=== PATIENT | male | born 2000 | race Caucasian/White ===

== ENCOUNTER 2022-03-18 21:02 | Outpatient (CLI) | payer BC | END 2022-03-18 21:03 | disposition critical access hospital (66) | LOC: EMS 21:02 | DX: Z04.6 Encounter for general psychiatric examination, requested by authority (principal); R46.89 Other symptoms and signs involving appearance and behavior; R45.1 Restlessness and agitation; Z78.1 Physical restraint status | CPT/HCPCS: A0425; A0429 ==

== ENCOUNTER 2022-03-18 21:33 | Emergency (ER) | payer BC ==
[2022-03-18] MEDS ORDERED: risperiDONE 1 MG TABLET PO SCH (21:49)
--- NOTE | 2022-03-18 21:51 | ED Physician Documentation ---
PD HPI MHE - Stated complaint Stated Complaint: MHE - History obtained from History obtained from: Patient, EMS, Police - History of Present Illness Primary symptom: Manic - Additional information Additional information: Patient is a 21-year-old presenting for evaluation ofEntal health crisis. Patient reports a diagnosis of bipolar and over the last few days has been having increasingly bizarre behavior per the police. Patient has been yelling, crying, having difficulty and caring for themself (Not eating, not drinking). Please give the example that patient would grab a glass of water put a little salt in it drink it and then spit it out.Patient states that "I just do not feel right, I do not have any emotion at all". During encounter with EMS and police, patient had a periods of confusion, had difficulty in holding conversation,Yelling, getting in please officers face but not necessarily in an aggressive manner. Patient was transported in soft restraints. Patient was seen this morning at the [facility] walk-in clinic With the following recommendations made and diagnosis of bipolar 1, anxiety, cannabis use disorder. 1. Start risperidone 1 mg nightly to target mood #30. Side effects explained 2. Start hydroxyzine 25 mg every 8 hours as needed for anxiety #60. Side effects explained 3. Start therapy or counseling, see resources below 4. Resources provided for [facility] 5. Safety plan completed, reviewed, copy given PD PAST MEDICAL HISTORY - Allergies Allergies/Adverse Reactions: Allergies Allergy/AdvReac Type Severity Reaction Status Date / Time No Known Drug Allergies Allergy Verified 03/18/22 22:05 Results - Vitals Vitals: Vital Signs - 24 hr 03/18/22 03/18/22 03/19/22 21:55 22:01 01:30 Temperature 37.5 C 37 C Heart Rate 103 H 92 88 Respiratory 16 18 18 Rate Blood Pressure 130/88 H 111/78 117/76 O2 Saturation 99 98 99 03/19/22 08:25 Temperature Heart Rate 87 Respiratory 17 Rate Blood Pressure 118/75 O2 Saturation 99 Oxygen O2 Source Room air - EKG (time done) 2152 Rate: Rate (enter#) (103) Rhythm: Sinus tachycardia Intervals: No: Prolonged QT Ischemia: No: ST elevation c/w ischemia - Labs Labs: Laboratory Tests 03/18/22 03/18/22 03/18/22 21:48 21:48 22:00 WBC 7.8 RBC 5.09 Hgb 15.5 Hct 42.7 MCV 83.9 MCH 30.5 MCHC 36.3 H RDW 11.7 L Plt Count 266 MPV 10.1 Neut # (Auto) 5.5 Lymph # (Auto) 1.5 [place] # (Auto) 0.7 Eos # (Auto) 0.0 Baso # (Auto) 0.0 Absolute Nucleated RBC 0.00 Nucleated RBC % 0.0 Sodium Potassium Chloride Carbon Dioxide Anion Gap BUN Creatinine Estimated GFR (MDRD) Glucose Calcium Total Bilirubin AST ALT Alkaline Phosphatase Total Protein Albumin Globulin Albumin/Globulin Ratio Lipase TSH Urine Color DARK YELLOW Urine Clarity CLEAR Urine pH 6.0 Ur Specific [place] >=1.030 H Urine Protein 30 H Urine Glucose (UA) NEGATIVE Urine Ketones 40 H Urine Occult Blood NEGATIVE Urine Nitrite NEGATIVE Urine Bilirubin NEGATIVE Urine Urobilinogen 1 (NORMAL) Ur Leukocyte Esterase NEGATIVE Urine RBC 0-5 Urine WBC 0-3 Ur Squamous Epith Cells RARE Squamous Urine Bacteria None Seen Urine Casts 0-2 Course Granular Urine Mucus Marked Strands Ur Microscopic Review INDICATED Urine Culture Comments NOT INDICATED Salicylates Urine Opiates Screen NEGATIVE Ur Oxycodone Screen NEGATIVE Urine Methadone Screen NEGATIVE Ur Propoxyphene Screen NEGATIVE Acetaminophen Ur Barbiturates Screen NEGATIVE Ur Tricyclics Screen NEGATIVE Ur Phencyclidine Scrn NEGATIVE Ur Amphetamine Screen NEGATIVE U Methamphetamines Scrn NEGATIVE U Benzodiazepines Scrn POSITIVE H Urine Cocaine Screen NEGATIVE U Cannabinoids Screen POSITIVE H Ethyl Alcohol SARS-CoV-2 (PCR) 03/18/22 03/18/22 03/18/22 22:00 22:00 22:43 WBC RBC Hgb Hct MCV MCH MCHC RDW Plt Count MPV Neut # (Auto) Lymph # (Auto) [place] # (Auto) Eos # (Auto) Baso # (Auto) Absolute Nucleated RBC Nucleated RBC % Sodium 139 Potassium 3.2 L Chloride 96 L Carbon Dioxide 30 Anion Gap 13.0 BUN 14 Creatinine 1.0 Estimated GFR (MDRD) 93 Glucose 103 H Calcium 10.0 Total Bilirubin 1.5 H AST 20 ALT 19 Alkaline Phosphatase 50 Total Protein 7.9 Albumin 5.4 Globulin 2.5 Albumin/Globulin Ratio 2.2 Lipase 29 TSH 1.78 Urine Color Urine Clarity Urine pH Ur Specific [place] Urine Protein Urine Glucose (UA) Urine Ketones Urine Occult Blood Urine Nitrite Urine Bilirubin Urine Urobilinogen Ur Leukocyte Esterase Urine RBC Urine WBC Ur Squamous Epith Cells Urine Bacteria Urine Casts Urine Mucus Ur Microscopic Review Urine Culture Comments Salicylates < 6.0 Urine Opiates Screen Ur Oxycodone Screen Urine Methadone Screen Ur Propoxyphene Screen Acetaminophen < 10 L Ur Barbiturates Screen Ur Tricyclics Screen Ur Phencyclidine Scrn Ur Amphetamine Screen U Methamphetamines Scrn U Benzodiazepines Scrn Urine Cocaine Screen U Cannabinoids Screen Ethyl Alcohol < 5.0 SARS-CoV-2 (PCR) NOT DETECTED PD MEDICAL DECISION MAKING - ED course Complexity details: reviewed results, re-evaluated patient ED course: Patient presenting for mental health evaluation.Reports history of bipolar and appears to be having symptoms of a manic episode.Per the story from the billing and quality technician's office, he has not been eating or drinking much in the last week and his symptoms appear to be affecting his ability to care for himself.He is voluntary for placement.He has been medically cleared.He has been accepted to inpatient psychiatric facility. 2239 - Patient has been medically cleared. He has been cooperative. He is voluntary for placement at this time. 2304 - Patient Accepted to [facility] With transport to occur in the morning. Departure - Departure Disposition: [facility] Psych Hosp/Unit DC/Xfer Clinical Impression: Bipolar disorder Condition: Stable Discharge Date/Time: 03/19/22 08:34
[2022-03-18 21:56] LABS: GLUCOSE, URINE (UA) NEGATIVE (NEGATIVE); KETONES,URINE (UA) 40 mg/dL (NEGATIVE); LEUKOCYTE ESTERASE, URINE NEGATIVE (NEGATIVE); NITRITE,URINE NEGATIVE (NEGATIVE); OCCULT BLOOD,URINE NEGATIVE (NEGATIVE); PROTEIN,URINE 30 mg/dL (NEGATIVE); UROBILINOGEN,URINE 1 (NORMAL) E.U./dL (NORMAL)
[2022-03-18 22:01] LABS: BILIRUBIN,URINE NEGATIVE (NEGATIVE); CLARITY,URINE CLEAR (CLEAR); ICTOTEST,URINE NEGATIVE
[2022-03-18 22:05] LABS: MUDS CUTOFF CONCENTRATIONS CUTOFF CONC BELOW:
[2022-03-18 22:06] LABS: BACTERIA,URINE None Seen /HPF (None Seen); CASTS, URINE 0-2 Course Granular /LPF; MUCUS,URINE Marked Strands; RBC,URINE 0-5 /HPF (0-5); SQUAMOUS EPITHELIAL CELL,UR RARE Squamous (<= Few); WBC,URINE 0-3 /HPF (0-3)
[2022-03-18 22:10] LABS: BASOPHILS % (AUTO) 0.5 %; EOSINOPHILS % (AUTO) 0.3 %; HCT - HEMATOCRIT 42.7 % (42.0-52.0); HGB - HEMOGLOBIN 15.5 g/dL (14.0-18.0); LYMPHOCYTES # (AUTO) 1.5 10^3/uL (1.5-3.5); LYMPHOCYTES % (AUTO) 19.4 %; MEAN CORPUSCULAR HEMOGLOBIN 30.5 pg (27.0-31.0); MEAN CORPUSCULAR HGB CONC 36.3 g/dL (32.0-36.0); MEAN CORPUSCULAR VOLUME 83.9 fL (80.0-94.0); MEAN PLATELET VOLUME 10.1 fL (7.4-11.4); MONOCYTES # (AUTO) 0.7 10^3/uL (0.0-1.0); MONOCYTES % (AUTO) 8.9 %; NEUTROPHILS # (AUTO) 5.5 10^3/uL (1.5-6.6); NEUTROPHILS % (AUTO) 70.6 %; PLT - PLATELET COUNT 266 10^3/uL (130-450); RED BLOOD COUNT 5.09 10^6/uL (4.70-6.10); RED CELL DISTRIBUTION WIDTH 11.7 % (12.0-15.0); WHITE BLOOD COUNT 7.8 x10^3/uL (4.8-10.8)
[2022-03-18 22:18] LABS: AMPHETAMINE SCREEN,URINE NEGATIVE (NEGATIVE); BARBITURATE SCREEN,UR NEGATIVE (NEGATIVE); BENZODIAZEPINES SCREEN, URINE POSITIVE (NEGATIVE); COCAINE SCREEN URINE NEGATIVE (NEGATIVE); METHADONE SCREEN, URINE NEGATIVE (NEGATIVE); METHAMPHETAMINES SCREEN, URINE NEGATIVE (NEGATIVE); OPIATE SCREEN, URINE NEGATIVE (NEGATIVE); OXYCODONE SCREEN, URINE NEGATIVE (NEGATIVE); PROPOXYPHENE SCREEN, URINE NEGATIVE (NEGATIVE); THC CANNABINOID SCREEN, URINE POSITIVE (NEGATIVE); TRICYCLIC ANTIDEPRESSANT,URINE NEGATIVE (NEGATIVE)
[2022-03-18 22:22] LABS: ACETAMINOPHEN < 10 ug/mL (10-30); ALBUMIN 5.4 g/dL (3.2-5.5); ALBUMIN/GLOBULIN RATIO 2.2 (1.0-2.2); ALKALINE PHOSPHATASE 50 IU/L (42-121); ALT ALANINE AMINOTRANSFERASE 19 IU/L (10-60); AST ASPARTATE AMINOTRANSFERASE 20 IU/L (10-42); BILIRUBIN,TOTAL 1.5 mg/dL (0.2-1.0); BUN - BLOOD UREA NITROGEN 14 mg/dL (6-20); CARBON DIOXIDE - CO2 30 mmol/L (21-32); CHLORIDE 96 mmol/L (101-111); ETOH - ETHANOL < 5.0 mg/dL; GFR - MDRD 93 (>89); GLUCOSE 103 mg/dL (70-100); LIPASE 29 U/L (22-51); POTASSIUM 3.2 mmol/L (3.5-5.0); SALICYLATE < 6.0 mg/dL; SODIUM 139 mmol/L (135-145); TOTAL PROTEIN 7.9 g/dL (6.7-8.2)
[2022-03-18] MEDS ORDERED: hydrOXYzine PAMOATE 25 MG CAPSULE PO STA (22:27)
[2022-03-18] MEDS ORDERED: POTASSIUM CHLORIDE 20 MEQ TABLET PO STA (22:27)
[2022-03-19] MEDS ORDERED: LORazepam 1 MG TABLET PO STA (02:08)
[2022-03-19 08:26] VITALS: BP 118/75
== END 2022-03-19 08:34 ==
LOC: ED 21:33
DX: F31.9 Bipolar disorder, unspecified (principal); Z20.822 Contact with and (suspected) exposure to COVID-19
CPT/HCPCS: 36415; 80053; 80306; 80307; 80320; 80329; 81001; 83690; 84443; 85025; 87635; 93005; 99281; 99285; A9270; J8499; 81003; 87086